=== PATIENT | female | born 1990 | race Caucasian/White ===

== ENCOUNTER 2020-06-26 15:07 | Outpatient (CLI) | payer BC ==
[2020-06-27 01:05] LABS: SARS-CoV-2 PCR by NAA Not Detected (NotDetected)
== END 2020-06-26 15:08 | disposition home or self-care (01) ==
LOC: EDBD → CSHLAB 15:07
PROVIDERS: ATTEND Internal Medicine Gastroenterology
DX: Z20.822 Contact with and (suspected) exposure to COVID-19 (principal); K62.5 Hemorrhage of anus and rectum
CPT/HCPCS: 87635; U0003; U0005